=== PATIENT | female | born 1970 ===

== ENCOUNTER 2021-02-17 11:18 | Emergency (ER) | payer OTHER ==
[~2021-02-17] VITALS: Ht 170.2 cm; Wt 87.1 kg
[2021-02-17] MEDS ORDERED: TOPROL XL25 M1 PO (11:28)
[2021-02-17] MEDS ORDERED: HYDROCHLOROTHIA25 MG PO (11:28)
[2021-02-17] MEDS ORDERED: VERAPAMIL ER300 MG PO (11:28)
[2021-02-17] MEDS ORDERED: CLONAZEPAM2 MG PO (11:29)
[2021-02-17] MEDS ORDERED: COZAAR100 MG PO (11:29)
[2021-02-17] MEDS ORDERED: ATORVASTATIN CA10 MG PO (11:29)
[2021-02-17] MEDS ORDERED: KETO10TA2 PO (14:00)
[2021-02-17] MEDS ORDERED: AMOX-CLAV 875-1 EACH PO (14:00)
== END 2021-02-17 14:16 | disposition home or self-care (01) ==
LOC: ER 11:18
DX: B34.9 Viral infection, unspecified (principal); Z11.52 Encounter for screening for COVID-19